=== PATIENT | female | born 1960 | race Caucasian/White ===

== ENCOUNTER 2017-04-04 23:34 | Emergency (ER) | payer OTHER ==
[2017-04-05 00:01] VITALS: BMI 37.8
--- NOTE | 2017-04-05 01:07 | PDOC ---
History of Present Illness - General History Source: Patient Exam Limitations: No Limitations - History of Present Illness Initial Comments: 04/05/17 02:28 Patient is a 56 year old female, from [facility], with a significant past medical history of Staph aureus endocarditis, Anemia, Bipolar End stemi, Chronic venous stasis to legs, Chronic edema to legs, Bioprosthetic valve replacement, Afib, and Blood transfusions who was brought to by EMS to the ED for complaints of bloody vomiting that began last night at 9 pm. Patient reports experiencing sudden episode of bloody vomiting last night after coughing. She reports experiencing episodes of dizziness and shaking secondary to vomiting. Patient states she has not walked for multiple years and is wheelchair bound to due a broken left knee and weak muscles. She reports taking Eliquis, Didge, and albuterol. Denies chest pain, SOB. Denies fevers, chills. Denies contact with sick individuals. Denies change in diet. Denies any other symptoms. Allergies: Statin, Penicillin, Cephalosporins, Spironolactone Social history: No smoking. No alcohol. No illicit drugs. Surgical history: Open heart surg. PMD: Dr. Norman. <Joshua Domingo - Last Filed: 04/05/17 02:28> <Charlotte Lopez - Last Filed: 04/06/17 01:15> - General Chief Complaint: Hemoptysis Stated Complaint: COUGH Time Seen by Provider: 04/05/17 00:39 Past History <Joshua Domingo - Last Filed: 04/05/17 02:28> - Suicide/Smoking/Psychosocial Hx Smoking History: Never smoked Have you smoked in the past 12 months: No Information on smoking cessation initiated: No Hx Alcohol Use: No Drug/Substance Use Hx: No <Charlotte Lopez - Last Filed: 04/06/17 01:15> - Past Medical History Allergies/Adverse Reactions: Allergies Allergy/AdvReac Type Severity Reaction Status Date / Time Cephalosporins Allergy Verified 04/04/17 23:53 Penicillins Allergy Verified 04/04/17 23:53 spironolactone Allergy Verified 04/04/17 23:53 [id number]-Mow Reductase Allergy Verified 04/04/17 23:53 Inhibitor Home Medications: Ambulatory Orders NK [No Known Home Medication] 04/05/17 Review of Systems - Review of Systems Able to Perform ROS?: Yes Comments:: 04/05/17 02:28 CONSTITUTIONAL: Absent: fever, chills, diaphoresis, generalized weakness, malaise, loss of appetite HEENT: Absent: rhinorrhea, nasal congestion, throat pain, throat swelling, difficulty swallowing, mouth swelling, ear pain, eye pain, visual Changes CARDIOVASCULAR: Absent: chest pain, syncope, palpitations, irregular heart rate, lightheadedness , peripheral edema RESPIRATORY: Absent: cough, shortness of breath, dyspnea with exertion, orthopnea, wheezing, stridor, hemoptysis GASTROINTESTINAL: Absent: abdominal pain, abdominal distension, nausea, vomiting, diarrhea, constipation, melena, hematochezia GENITOURINARY: Absent: dysuria, frequency, urgency, hesitancy, hematuria, flank pain, genital pain MUSCULOSKELETAL: Absent: myalgia, arthralgia, joint swelling SKIN: Absent: rash, itching, pallor HEMATOLOGIC/IMMUNOLOGIC: Absent: easy bleeding, easy bruising, lymphadenopathy, frequent infections ENDOCRINE: Absent: unexplained weight gain, unexplained weight loss, heat intolerance, cold intolerance NEUROLOGIC: Absent: headache, focal weakness or paresthesias, dizziness, unsteady gait, seizure, mental status changes, bladder or bowel incontinence PSYCHIATRIC: Absent: anxiety, depression, suicidal or homicidal ideation, hallucinations. All Other Systems: Reviewed and Negative <Joshua Domingo - Last Filed: 04/05/17 02:28> *Physical Exam - Vital Signs Last Vital Signs Temp Pulse Resp BP Pulse Ox 109 H 14 116/77 04/04/17 23:53 04/04/17 23:53 04/04/17 23:53 - Physical Exam Comments: 04/05/17 02:29 GENERAL: Well developed, well nourished. Awake and alert. No acute distress. HEENT: Normocephalic, atraumatic. PERRLA, EOMI. No conjunctival pallor. Sclera are non- icteric. Moist mucous membranes. Oropharynx is clear. NECK: Supple. Full ROM. No JVD. Carotid pulses 2+ and symmetric, without bruits. No thyromegaly. No lymphadenopathy. CARDIOVASCULAR: +Murmur +well healed sternotomy scar. +Nw aid flutter. Regular rate and rhythm. No rubs, or gallops. Distal pulses are 2+ and symmetric. PULMONARY: No evidence of respiratory distress. Lungs clear to auscultation bilaterally. No wheezing, rales or rhonchi. ABDOMINAL: +Hemoptosis. Soft. Non-tender. Non-distended. No rebound or guarding. No organomegaly. Normoactive bowel sounds. MUSCULOSKELETAL Normal range of motion at all joints. No bony deformities or tenderness. No CVA tenderness. EXTREMITIES: +Minimal bilateral lower extremity edema. +Maculopapular rash to arm bilaterally. +Lower extremity cellulitis. No cyanosis. No clubbing. No edema. No calf tenderness. SKIN: Warm and dry. Normal capillary refill. No rashes. No jaundice. NEUROLOGICAL: +dizziness. Alert, awake, appropriate. Cranial nerves 2-12 intact. No deficits to light touch and temperature in face, upper extremities and lower extremities. No motor deficits in the in face, upper extremities and lower extremities. Normoreflexic in the upper and lower extremities. Normal speech. Toes are down- going bilaterally. PSYCHIATRIC: Cooperative. Good eye contact. Appropriate mood and affect. <Joshua Domingo - Last Filed: 04/05/17 02:28> - Vital Signs Last Vital Signs Temp Pulse Resp BP Pulse Ox 109 H 14 116/77 04/04/17 23:53 04/04/17 23:53 04/04/17 23:53 <Charlotte Lopez - Last Filed: 04/06/17 01:15> ED Treatment Course - LABORATORY CBC & Chemistry Diagram: 04/05/17 02:20 04/05/17 02:56 <Charlotte Lopez - Last Filed: 04/06/17 01:15> *DC/Admit/Observation/Transfer - Attestations Scribe Attestion: 04/05/17 02:29 Documentation prepared by Joshua Domingo, acting as mobile paramedical examiner for Charlotte Lopez MD/DO. <Joshua Domingo - Last Filed: 04/05/17 02:28> <Charlotte Lopez - Last Filed: 04/06/17 01:15> Diagnosis at time of Disposition: Hemoptysis, unspecified - Discharge Dispostion Disposition: HOME Condition at time of disposition: Stable - Referrals Referrals: Bear Santana MD [Primary Care Provider] - Jayce Davis MD [Staff Physician] - Jarad Leong MD, MD [Staff Physician] - - Patient Instructions Printed Discharge Instructions: DI for Hemoptysis Additional Instructions: Please follow up with the doctors referred to you in the ER if symptoms continue. - Post Discharge Activity
[2017-04-05] MEDS ORDERED: SODIUM CHLORIDE 1,000 ML IV SCH (01:15)
[2017-04-05] MEDS ORDERED: DOCUSATE SODIUM 100 MG CAPSULE (FP) PO ONE ×2 (01:50→02:48)
[2017-04-05] MEDS ORDERED: oxyCODONE HCL 5 MG TABLET PO ONE ×2 (01:50→05:07)
[2017-04-05] MEDS ORDERED: PREGABALIN 100 MG CAPSULE PO ONE (01:50)
[2017-04-05] MEDS ORDERED: oxyCODONE HCL 5 MG TABLET ONE ×2 (02:00→05:10)
[2017-04-05 02:36] LABS: BASO % 0.6 % (0-2.0); EOS % 0.2 % (0-4.5); HEMATOCRIT 30.6 % (32.4-45.2); HEMOGLOBIN 10.1 GM/dL (10.7-15.3); LYMPH % 20.1 % (8-40); MCH 29.9 pg (25.7-33.7); MCHC 33.1 g/dl (32.0-36.0); MEAN CELL VOLUME 90.3 fl (80-96); MEAN PLT VOLUME 7.8 fl (7.5-11.1); MONO % 4.6 % (3.8-10.2); NEUT % 74.5 % (42.8-82.8); PLATELET COUNT 394 K/MM3 (134-434); RBC 3.39 M/mm3 (3.60-5.2)
[2017-04-05] MEDS ORDERED: PREGABALIN 100 MG CAPSULE ONE (02:48)
[2017-04-05 02:57] LABS: INR 1.58 (0.82-1.09); PROTHROMBIN TIME (PATIENT) 17.9 SEC (9.98-11.88)
[2017-04-05 03:27] LABS: URINE APPEARANCE CLOUDY; URINE BILIRUBIN NEGATIVE (NEGATIVE); URINE BLOOD 3+ (NEGATIVE); URINE COLOR AMBER; URINE GLUCOSE (UA) NEGATIVE (NEGATIVE); URINE KETONE NEGATIVE (NEGATIVE); URINE LEUK ESTERASE TRACE (NEGATIVE); URINE NITRITE NEGATIVE (NEGATIVE)
[2017-04-05 03:29] LABS: URINE PROTEIN 1+ (NEGATIVE)
[2017-04-05 03:48] LABS: ALBUMIN 2.4 g/dl (3.4-5.0); ANION GAP 10 (8-16); BILIRUBIN,TOTAL 0.4 mg/dL (0.2-1.0); BLOOD UREA NITROGEN 15 mg/dL (7-18); CALCIUM 8.4 mg/dL (8.5-10.1); CHLORIDE 106 mmol/L (98-107); CO2 25 mmol/L (21-32); CREATININE 1.1 mg/dL (0.55-1.02); GLUCOSE,RANDOM 94 mg/dL (74-106); POTASSIUM 3.8 mmol/L (3.5-5.1); SGOT/AST 21 U/L (15-37); SGPT/ALT 18 U/L (12-78); SODIUM 141 mmol/L (136-145); TOT PROT 7.4 g/dl (6.4-8.2)
[2017-04-05 03:59] LABS: ALK PHOS 160 U/L (45-117)
--- NOTE | 2017-04-05 05:03 | PDOC ---
*Physical Exam - Vital Signs Last Vital Signs Temp Pulse Resp BP Pulse Ox 109 H 14 116/77 04/04/17 23:53 04/04/17 23:53 04/04/17 23:53 ED Treatment Course - LABORATORY CBC & Chemistry Diagram: 04/05/17 02:20 04/05/17 02:56 - ADDITIONAL ORDERS Additional order review: Laboratory Results 04/05/17 04/05/17 04/05/17 03:08 02:56 02:56 PT with INR INR Sodium 141 Potassium 3.8 Chloride 106 Carbon Dioxide 25 Anion Gap 10 BUN 15 Creatinine 1.1 H Creat Clearance w eGFR 51.76 Random Glucose 94 Calcium 8.4 L Total Bilirubin 0.4 AST 21 ALT 18 Alkaline Phosphatase 160 H Creatine Kinase 76 Troponin I 0.15 H Total Protein 7.4 Albumin 2.4 L Urine Color Norah Urine Appearance Cloudy Urine pH 5.0 Ur Specific [place] 1.014 Urine Protein 1+ H Urine Glucose (UA) Negative Urine Ketones Negative Urine Blood 3+ H Urine Nitrite Negative Urine Bilirubin Negative Urine Urobilinogen 2.0 H Ur Leukocyte Esterase Trace Digoxin 1.2754 Blood Type A NEGATIVE 04/05/17 04/05/17 02:20 02:20 PT with INR 17.90 H INR 1.58 H Sodium Cancelled Potassium Cancelled Chloride Cancelled Carbon Dioxide Cancelled Anion Gap Cancelled BUN Cancelled Creatinine Cancelled Creat Clearance w eGFR Cancelled Random Glucose Cancelled Calcium Cancelled Total Bilirubin Cancelled AST Cancelled ALT Cancelled Alkaline Phosphatase Cancelled Creatine Kinase Cancelled Troponin I Cancelled Total Protein Cancelled Albumin Cancelled Urine Color Urine Appearance Urine pH Ur Specific [place] Urine Protein Urine Glucose (UA) Urine Ketones Urine Blood Urine Nitrite Urine Bilirubin Urine Urobilinogen Ur Leukocyte Esterase Digoxin Cancelled Blood Type 04/05/17 02:20 RBC 3.39 L MCV 90.3 MCHC 33.1 RDW 16.0 H MPV 7.8 Neutrophils % 74.5 Lymphocytes % 20.1 Monocytes % 4.6 Eosinophils % 0.2 Basophils % 0.6 - Medications Given in the ED: ED Medications Discontinued Medications Generic Name Dose Route Start Last Admin Trade Name Freq PRN Reason Stop Dose Admin Docusate Sodium 100 mg 04/05/17 01:50 04/05/17 02:53 Colace - PO 04/05/17 01:51 100 mg ONCE ONE Administration Oxycodone HCl 10 mg 04/05/17 01:50 04/05/17 02:31 Roxicodone - PO 04/05/17 01:51 10 mg ONCE ONE Administration Pregabalin 100 mg 04/05/17 01:50 04/05/17 02:53 Lyrica - PO 04/05/17 01:51 100 mg ONCE ONE Administration *DC/Admit/Observation/Transfer Diagnosis at time of Disposition: Hemoptysis, unspecified - Discharge Dispostion Disposition: HOME Condition at time of disposition: Stable Admit: No - Referrals Referrals: Bear Santana MD [Primary Care Provider] - Jarad Leong MD, MD [Staff Physician] - Jayce Davis MD [Staff Physician] - - Patient Instructions Printed Discharge Instructions: DI for Hemoptysis Additional Instructions: Please follow up with the doctors referred to you in the ER if symptoms continue. - Post Discharge Activity
[2017-04-05 08:40] VITALS: BP 143/68; PULSE 85; TEMP 98.1
== END 2017-04-05 08:50 | disposition home or self-care (01) ==
LOC: JER 23:34
DX: R04.2 Hemoptysis (principal); I48.91 Unspecified atrial fibrillation; Z79.01 Long term (current) use of anticoagulants; Z86.19 Personal history of other infectious and parasitic diseases; A49.01 Methicillin susceptible Staphylococcus aureus infection, unspecified site; Z95.4 Presence of other heart-valve replacement; D64.9 Anemia, unspecified; R60.0 Localized edema; I87.8 Other specified disorders of veins
CPT/HCPCS: 36415; 71045-TC; 80053; 80162; 81003; 81015; 82550; 84484; 85025; 85610; 86850; 86870; 86900; 86901; 86902; 99283-25